=== PATIENT | female | born 1980 | race Caucasian/White ===

== ENCOUNTER → 2017-11-22 09:48 | Outpatient (CLI) | payer BC, SELFPAY ==
--- NOTE | 2017-11-22 09:59 | XR_ITS ---
EXAM: XR lumbar spine min 4V HISTORY: ITS.REASON: ACUTE RIGHT SIDE LOW BACK PAIN WITH RIGHT SIDED SCIATICA ORDERING PHYSICIAN: Tyra Vincent MD PATIENT AGE: 36 years COMPARISON: None FINDINGS: Minimal levocurvature of the lumbar spine. No fracture or dislocation. There is slight decrease in the L5-S1 disc space which may be related to mild degenerative disc disease. No other significant abnormalities evident. The SI joints have an unremarkable appearance. There are 2 faint calcifications overlying the lower pole the right kidney on the oblique view and could be due to right nephrolithiasis. IMPRESSION: 1. No acute fracture. 2. Mild degenerative disc disease L5-S1 with minimal lumbar curvature convex left. 3. Possible right nephrolithiasis
== END ==
PROVIDERS: PCP Emergency Medicine; Visit Provider Emergency Medicine
DX: M54.41 Lumbago with sciatica, right side (principal)
CPT/HCPCS: 72110

== ENCOUNTER → 2019-11-05 11:12 | Outpatient (CLI) | payer MEDICAID, SELFPAY ==
--- NOTE | 2019-11-05 11:23 | XR_ITS ---
PROCEDURE: XR HIP RT 2-3V W/PELVIS CLINICAL INDICATION: RT HIP PAIN COMPARISON: [id number] HIP RT 2-3V W/PELVIS IF PERFOR from 12/20/2016 FINDINGS: No fracture or dislocation. No lytic or blastic change. There is normal mineralization. The joint spaces are well-preserved. No significant degenerative/arthritic changes. No erosive changes evident. Other findings:There is a small area of increased density overlying the central aspect of the right hip joint. This is better demonstrated on the lumbar spine images and could be due to small bone island. CT may confirm IMPRESSION: Possible small bone island overlying the acetabulum on the right otherwise negative, no acute finding Dictated by: See Salamanca MD 11/05/2019 14:19 Electronically signed by See Salamanca MD in [place] 11/05/2019 14:19
--- NOTE | 2019-11-05 11:23 | XR_ITS ---
PROCEDURE: XR LUMBAR SPINE 2-3V CLINICAL INDICATION: LOW BACK PAIN COMPARISON: [id number] HIP RT 2-3V W/PELVIS IF PERFOR from 12/20/2016 [id number] XR lumbar spine min 4V from 11/22/2017 XR HIP RT 2-3V W/PELVIS from 11/05/2019 FINDINGS: No fracture or dislocation. No lytic or blastic change. There is normal mineralization. Normal alignment. The disc spaces are well preserved. There is minimal lumbar curvature convex left Other findings:There is a small area of increased density overlying the right hip joint centrally. This is not well demonstrated on the hip exam of the same day and could be due to small bone island within the acetabular region. IMPRESSION: No acute findings. Dictated by: See Salamanca MD 11/05/2019 14:18 Electronically signed by See Salamanca MD in [place] 11/05/2019 14:18
== END ==
PROVIDERS: PCP Nurse Practitioner; Visit Provider Nurse Practitioner
DX: M25.551 Pain in right hip (principal); M54.5 Low back pain
CPT/HCPCS: 72100; 73502

== ENCOUNTER → 2019-11-25 08:43 | Outpatient (CLI) | payer MEDICAID, SELFPAY ==
--- NOTE | 2019-11-25 08:47 | CT_ITS ---
PROCEDURE: CT HIP RT W CON CLINICAL HISTORY: RT HIP PAIN Chronic right hip pain COMPARISON: CR XR HIP RT 2-3V W/PELVIS from 11/05/2019 TECHNIQUE: Axial images obtained with sagittal and coronal reformats. All CT scans at the facility use one or more dose reduction, viz: automated exposure control, ma/kV adjustment per patient size (including targeted exams where dose is matched to indication, i.e. head), or iterative reconstruction technique. FINDINGS: No fracture or dislocation. No lytic changes are evident. There is a small area of sclerosis within the posterior aspect of the acetabular cup suggesting a small bone island measuring 6 mm. No soft tissue mass. No obvious effusions. The right SI joint has an unremarkable appearance. There is a small right ovarian cyst at 1.9 cm. IMPRESSION: 1. No acute finding. 2. 6 mm sclerotic area in the right acetabulum which could represent a bone island Dictated by: See Salamanca MD 11/26/2019 10:00 See Salamanca MD in [place] 11/26/2019 10:00
== END ==
PROVIDERS: PCP Nurse Practitioner; Visit Provider Nurse Practitioner
DX: M25.551 Pain in right hip (principal)
CPT/HCPCS: 73701; Q9967

== ENCOUNTER 2024-02-04 15:45 | Outpatient (CLI) | payer MEDICAID, SELFPAY ==
--- NOTE | 2024-02-04 15:51 | MM_ITS ---
PROCEDURE INFORMATION: Exam: MG Bilateral Screening 3D Mammography Exam date and time: 02/04/2024 3:39 PM Age: 43 years old Clinical indication: Baseline screening mammogram TECHNIQUE: Imaging protocol: Bilateral Screening tomosynthesis and 2D mammography including computer-aided detection (CAD) when performed. COMPARISON: No relevant prior studies available. FINDINGS: MAMMOGRAPHY: Breast composition: There are scattered areas of fibroglandular density. Mass: None. Architectural distortion: No new or suspicious architectural distortion. Calcifications: No new or suspicious calcifications are present Asymmetric density: No new or suspicious asymmetric density is present Skin thickening: None. Axillary adenopathy: None. IMPRESSION: No mammographic evidence of malignancy. Recommend annual screening mammography unless otherwise clinically indicated. ASSESSMENT: BI-RADS category 1: Negative.
== END 2024-02-04 23:59 | disposition home or self-care (01) ==
LOC: RAD 15:48
PROVIDERS: PCP Nurse Practitioner Family; Visit Provider Nurse Practitioner Family
DX: Z12.31 Encounter for screening mammogram for malignant neoplasm of breast (principal)
CPT/HCPCS: 77063; 77067

== ENCOUNTER 2024-11-27 09:21 | Outpatient (CLI) | payer OTHER, SELFPAY ==
[2024-11-27 09:43] LABS: Hematocrit 39.9 % (37.0-47.0); Hemoglobin 13.2 g/dL (12.2-16.2); Immature Granulocytes % 0.3 %; Mean Corpuscular HGB Conc 33.1 g/dL (31.8-35.4); Mean Corpuscular Hemoglobin 29.3 pg (27.0-31.2); Mean Corpuscular Volume 88.5 fl (81-99); Nucleated Red Blood Cells % 0 %; Platelet Count 290 K/mm3 (142-424); Red Blood Count 4.51 M/mm3 (4.20-5.40); Red Cell Distribution Width-SD 40.8 fL; White Blood Count 6.3 K/mm3 (4.8-10.8)
[2024-11-27 10:24] LABS: Albumin Level 4.0 g/dl (3.5-5.0); Chloride 108 mmol/L (98-107)
[2024-11-27 10:25] LABS: Potassium 4.3 mmoL/L (3.5-5.1); Sodium 140 mmol/L (136-145)
[2024-11-27 10:27] LABS: Alanine Aminotransferase 16 U/L (12-78); Albumin/Globulin Ratio 1.4 (1.1-1.8); Alkaline Phosphatase 68 U/L (38-126); Amylase 57 U/L (30-110); Anion Gap 8.3 mEq/L (5-15); Aspartate Amino Transferase 24 U/L (14-36); Bilirubin,Total 0.5 mg/dl (0.2-1.3); Blood Urea Nitrogen 12 mg/dl (7-17); Carbon Dioxide 28 mmol/L (22.0-30.0); Creatinine,Serum 0.60 mg/dl (0.52-1.04); Estimated Glomerular Filt Rate 110 ml/min (>60); GFR (African American) 133 ML/MIN (>60); Globulin 2.8 g/dL (1.3-3.2); Glucose 91 mg/dl (74-100); Total Protein,Serum 6.8 g/dl (6.3-8.2)
[2024-11-27 10:28] LABS: Calcium 9.0 mg/dl (8.4-10.2); Cholesterol 198 mg/dl (140-200); HDL Cholesterol 54 mg/dl (40-60); Lipase 73 U/L (23-300); Triglycerides 99 mg/dl (30-150)
[2024-11-27 10:58] LABS: Thyroid Stimulating Hormone 1.22 uIU/mL (0.465-4.68)
== END 2024-11-27 23:59 | disposition home or self-care (01) ==
LOC: LAB 09:24
PROVIDERS: Physician Assistant; PCP Family Medicine; Visit Provider Family Medicine
DX: K21.9 Gastro-esophageal reflux disease without esophagitis (principal); R10.12 Left upper quadrant pain; Z13.220 Encounter for screening for lipoid disorders
CPT/HCPCS: 36415; 80053; 80061; 82150; 83690; 84443; 85025

== ENCOUNTER 2025-03-02 10:27 | Day surgery (SDC) | payer OTHER, SELFPAY ==
--- NOTE | 2025-02-25 11:58 | EXP.HP ---
History of Present Illness *Admission Date: 03/02/25 *History of present illness: Mrs. Guaman is a 44-year-old female who is here for diagnostic EGD. The patient reports gastroesophageal reflux and heartburn with some retrosternal chest pain. This has been going on for about a year. She was placed on omeprazole a couple of months ago with improvement. This is now occurring less often and about once weekly. She does get a lot of bloating, gassiness and belching. She also has had some swallowing trouble with dysphagia and feels like she gets a little choked. She did try and fail [id number] Prilosec previously. She does have some left upper abdominal pain and discomfort. She also reports daily bowel movements but these are often loose. She reports no family history of esophageal or gastric cancer. This is her first EGD. The examination is deemed medically necessary for diagnostic EGD. The patient has been seen, interviewed and examined prior to the procedure by both myself and the anesthesia provider. [facility] Disclaimer: The information contained in this section may have been updated after the patient was seen, as this information can be updated by other users. Medical History (Updated 03/02/25 @ 11:00 by Lina Pierre RN) History of gastroesophageal reflux (GERD) Surgical History History of section Family History Other No significant family history Social History (Updated 03/02/25 @ 11:38 by Sj Anguiano CRNA) Smoking Status: Never smoker alcohol intake: never substance use type: denies use current occupational status: employed Travel in the last 8 weeks?: None caffeine: Yes Have you lived/traveled outside [place] in past 30 days?: No Contact w/someone who lives/traveled outside [place] past 30 days?: No Exposure to someone with infectious disease in past 14 days?: No Do you have a fever (greater than 100.4 F or 38 C)?: No Have you tested positive for COVID-19?: No Exposed to someone with COVID-19 in past 14 days?: No Do you have a sore throat?: No Do you have a cough?: No Do you have any weakness?: No Are you experiencing any nausea/vomitting?: No Do you have any diarrhea?: No Are you experiencing any unusual bleeding?: No Do you have any muscle aches/pain?: No Do you have any abdominal pain?: No Are you experiencing loss of taste or smell?: No Review of Systems Review of Systems Review of systems (narrative): Negative *Cardiovascular Comments: Negative *Gastrointestinal Comments: Negative *Genitourinary Comments: Negative *Musculoskeletal Comments: Negative *Neurologic Comments: Negative Meds Home Medications and Allergies Home Medications ?Medication ?Instructions ?Recorded ?Confirmed ?Type omeprazole 40 mg capsule,delayed 40 mg PO DAILY 12/28/24 03/02/25 History release pseudoephedrine HCl 120 mg 0 mg PO DAILY PRN allergies 03/02/25 03/02/25 History capsule,extended release New Prescriptions to Start Prescriptions: Allergies Allergy/AdvReac Type Severity Reaction Status Date / Time Penicillins Allergy Unknown Blister Verified 03/02/25 10:56 Exam *Routine HEENT Exam Head: Present normocephalic Eye: Present EOMI and PERRL ENT: Present mucous membranes moist *Routine Neck Exam Neck: Present supple *Routine Respiratory Exam Respiratory: Present CTA bilaterally *Routine Cardiovascular Exam Cardiovascular: Present RRR *Routine Abdominal Exam Abdominal: Present soft and normoactive bowel sounds; Absent tenderness *Routine Rectal Exam Rectal:: deferred *Routine Genitalia Exam Genitalia:: deferred *Routine Extremities Exam Extremities: Absent cyanosis, clubbing or edema *Routine Skin Exam Skin: Present warm; Absent rash *Routine Neurological Exam Neurological: Present alert and oriented X3 Assessment and Plan *Assessment and plan (1) Heartburn: Status: Acute Category: Medical Code(s): R12 - Heartburn (2) Acid reflux: Status: Acute Category: Medical Code(s): K21.9 - Gastro-esophageal reflux disease without esophagitis (3) Retrosternal chest pain: Status: Acute Category: Medical Code(s): R07.2 - Precordial pain (4) Dysphagia: Status: Acute Category: Medical Code(s): R13.10 - Dysphagia, unspecified (5) Bloating: Status: Acute Category: Medical Code(s): R14.0 - Abdominal distension (gaseous) (6) Loose stools: Status: Acute Category: Medical Code(s): R19.5 - Other fecal abnormalities (7) LUQ pain: Status: Acute Category: Medical Code(s): R10.12 - Left upper quadrant pain Plan A/P: 1. Heartburn/reflux with dysphagia and retrosternal pain is the preprocedural diagnosis. The patient also reports bloating, left upper quadrant pain and loose stools. The patient will be anesthetized/sedated using MAC sedation. The patient has been seen and examined. Cardiac and lung assessment prior to the examination is stable. Proceed with planned diagnostic EGD.
[2025-03-01 10:54] VITALS: BMI 36.7
--- NOTE | 2025-03-02 06:57 | P.PCN_ITS ---
[facility] Procedure Note Date: 03/02/25 Time: 12:45 Procedure Note:: Upper Endoscopy Procedure Report: Esophagogastroduodenoscopy with cold biopsies and TTS balloon dilation Endoscopost: Andrés Garza II, MD Referring Physician: Crystal Cody PA-C Date of Procedure: March 02, 2025 Equipment: Olympus [id number]-1100 standard upper endoscope Sedation: MAC sedation Indications: Mrs. Guaman is a 44-year-old female who is here for diagnostic EGD. The patient reports gastroesophageal reflux and heartburn with some retrosternal chest pain. This has been going on for about a year. She was placed on omeprazole a couple of months ago with improvement. This is now occurring less often and about once weekly. She does get a lot of bloating, gassiness and belching. She also has had some swallowing trouble with dysphagia and feels like she gets a little choked. She did try and fail [id number] Prilosec previously. She does have some left upper abdominal pain and discomfort. She also reports daily bowel movements but these are often loose. She reports no family history of esophageal or gastric cancer. This is her first EGD. The examination is deemed medically necessary for diagnostic EGD. Procedure: Prior to the procedure, a history and physical exam was performed, and patient's medications and allergies were reviewed. The risks, benefits and alternatives of the sedation and procedure were discussed with the patient. All questions were answered and informed consent was obtained. The patient was brought to the procedure room. Patient identification and proposed procedure were verified by the physician and the nurse. The patient was placed in a left lateral decubitus position and the scope was passed under direct vision. Throughout the procedure, the patient's blood pressure, pulse, and oxygen saturations were monitored continuously. The upper GI endoscopy was accomplished without difficulty. The patient tolerated the procedure well. Findings: The scope was passed directly into the upper esophagus and advanced to the third portion of the duodenum. The post bulbar duodenum, major ampulla, minor ampulla and duodenal bulb were normal with normal mucosa and conniventes. 2 cold biopsies were taken from the second portion of the duodenum for the disaccharidase assay. The scope was withdrawn through a normal duodenal bulb and pylorus into the stomach. There was mild antral gastropathy and mild proximal chronic gastritis of the body and fundus. Cold biopsies were taken from the lesser curvature to rule out H. pylori. Upon retroflexion there was no hiatal hernia. The scope was then withdrawn into the esophagus. There was no evidence of reflux esophagitis or Escobar's. There was very minor furrowing in the mid and distal esophagus and biopsies were obtained from the proximal/midesophagus to rule out eosinophilic esophagitis. There were tertiary contractions and evidence of mild esophageal dysmotility. The entire esophagus was dilated to 60 Icelandic/20 mm with a TTS hydrostatic balloon. There was some resistance at the cricopharyngeus/cricopharyngeal spasm. The remainder of the esophageal mucosa was normal. Impression: 1. 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 Moderate chronic gastritis?rule out H. pylori Plan: I will follow-up the biopsies and disaccharidase assay. I will review the findings with the patient and we will discuss treatment options.
[2025-03-02 10:58] VITALS: BP 142/74; PULSE 72; RESP 16; TEMP 36.8; O2SAT 98
[2025-03-02 11:12] LABS: Urine Pregnancy, HCG Qual. Negative (Negative)
--- NOTE | 2025-03-02 11:38 | EXP.ANES.CKL ---
[facility] Disclaimer: The information contained in this section may have been updated after the patient was seen, as this information can be updated by other users. Medical History (Updated 03/02/25 @ 11:00 by Lina Pierre RN) History of gastroesophageal reflux (GERD) Surgical History History of section Family History Other No significant family history Social History (Updated 03/02/25 @ 11:00 by Lina Pierre RN) Smoking Status: Never smoker alcohol intake: never substance use type: denies use current occupational status: employed Travel in the last 8 weeks?: None caffeine: Yes [facility] Anesthesia Checklist Patient Identification Patient Identification: Arm Band and Verbal (Name & ) Structural Data Admitted From: Home Planned Operative Procedure/s: EGD Consent for Planned Operative Procedure(s) Verified: Yes Verified Documents: Surgical Consent NPO Status Verified Time NPO: 00:00 Additional verifications Anesthesia Reactions: No Airway Assessment Mallampati Score:: Class II C-Spine Mobility Assessed: Yes TMJ Mobility Assessed: Yes Dentition: Good Dentition Neurological Assessment Level of Consciousness: Awake, Alert and Appropriate Hx Seizures: No Numbness or tingling in extremities: No Anesthesia Plan Anesthesia Risk discussed: Yes Anesthesia Plan: Verified ASA Class: II Anesthesia Type: MAC
[2025-03-02 12:45] VITALS: BP 134/93; PULSE 73; RESP 18; TEMP 36.3; O2SAT 95
[2025-03-02 12:55] VITALS: BP 144/95; PULSE 71; RESP 18; O2SAT 99
[2025-03-02 13:05] VITALS: BP 142/86; PULSE 72; RESP 18; O2SAT 97
[2025-03-02 13:30] VITALS: BP 157/84; PULSE 66; RESP 18; O2SAT 98
[2025-03-07 16:32] LABS: Interpretation Notes (.); Lactase 24.75 (>/= 14.0); Maltase 126.58 (>/= 110.0); Palatinase 9.74 (>/= 8.5); Reference Notes (.); Sucrase 33.26 (>/= 25.0)
== END 2025-03-02 13:30 | disposition home or self-care (01) ==
PROVIDERS: PCP Physician Assistant; Visit Provider Internal Medicine Gastroenterology
PROC: 0DJ08ZZ Inspection of Upper Intestinal Tract, Via Natural or Artificial Opening Endoscopic (ICD-10-PCS; CPT 43239; principal; 2025-03-02 12:00)
DX: K21.9 Gastro-esophageal reflux disease without esophagitis (principal); Z88.0 Allergy status to penicillin; Z79.899 Other long term (current) drug therapy; R14.0 Abdominal distension (gaseous)
CPT/HCPCS: 43239; 43249; 81025; 82657; C1726; J2003; J2704